=== PATIENT | male | born 1950 | race Caucasian/White ===

== ENCOUNTER 2017-01-25 09:34 | Outpatient (CLI) | payer MEDICARE, OTHER ==
[2017-01-25 09:57] LABS: BASOPHILS % (AUTO) 1.1 %; EOSINOPHILS # (AUTO) 0.1 10^3/uL (0.0-0.7); EOSINOPHILS % (AUTO) 2.9 %; HCT - HEMATOCRIT 39.2 % (42.0-52.0); HGB - HEMOGLOBIN 13.5 g/dL (14.0-18.0); LYMPHOCYTES # (AUTO) 0.6 10^3/uL (1.5-3.5); LYMPHOCYTES % (AUTO) 19.5 %; MEAN CORPUSCULAR HGB CONC 34.4 g/dL (32.0-36.0); MEAN CORPUSCULAR VOLUME 84.1 fL (80.0-94.0); MEAN PLATELET VOLUME 10.3 fL (7.4-11.4); MONOCYTES # (AUTO) 0.2 10^3/uL (0.0-1.0); MONOCYTES % (AUTO) 7.1 %; NEUTROPHILS # (AUTO) 2.2 10^3/uL (1.5-6.6); NEUTROPHILS % (AUTO) 69.4 %; NUCLEATED RED BLOOD CELLS AUTO 0.1 /100WBC; RED BLOOD COUNT 4.65 10^6/uL (4.70-6.10); RED CELL DISTRIBUTION WIDTH 14.9 % (12.0-15.0); UNCORRECTED WHITE BLOOD COUNT 3.2 x10^3/uL; WHITE BLOOD COUNT 3.2 x10^3/uL (4.8-10.8)
[2017-01-25 10:03] LABS: CREATININE 1.3 mg/dL (0.6-1.2); POTASSIUM 4.3 mmol/L (3.5-5.0)
== END 2017-01-25 09:35 | disposition home or self-care (01) ==
LOC: LAB 09:34
PROVIDERS: ATTEND Nurse Practitioner Family
DX: I25.10 Atherosclerotic heart disease of native coronary artery without angina pectoris (principal)
CPT/HCPCS: 36415; 80048; 85025

== ENCOUNTER 2017-08-21 15:52 | Emergency (ER) | payer MEDICARE, OTHER ==
--- NOTE | 2017-08-21 18:03 | ED Physician Documentation ---
History of Present Illness - Stated complaint Stated Complaint: ABNORMAL LABS - Chief complaint Chief Complaint: General - History obtained from History obtained from: Patient - History of Present Illness Timing: Today (had basic labs done outpatient this morning and critical potassium called to PMD, who referred patient to the ER. Patient is feeling okay.) Review of Systems Cardiac: denies: Chest pain / pressure, Palpitations Respiratory: denies: Dyspnea GI: denies: Vomiting, Diarrhea Musculoskeletal: denies: Extremity swelling Neurologic: denies: Generalized weakness, Near syncope PD PAST MEDICAL HISTORY - Past Medical History Past Medical History: Yes Cardiovascular: Hypertension, High cholesterol, [place] Respiratory: None Endocrine/Autoimmune: Type 2 diabetes : None HEENT: None Psych: None Musculoskeletal: None Derm: None - Past Surgical History Past Surgical History: Yes Ortho: Arthroscopic surgery Cardiovascular: Coronary stent HEENT: Cataracts - Present Medications Home Medications: Ambulatory Orders Medication Instructions Recorded Confirmed Allopurinol [Zyloprim] 100 mg PO DAILY 09/22/12 08/30/14 Aspirin EC [Ecotrin] 81 mg PO DAILY 09/22/12 08/30/14 Clopidogrel [Plavix] 75 mg PO DAILY 09/22/12 08/30/14 Insulin Aspart (Vial) [NovoLOG] 10 unit SUBQ DAILY 09/22/12 08/30/14 Insulin Glargine,Hum.rec.anlog 70 unit SQ 09/22/12 08/30/14 [Lantus] Lisinopril 40 mg PO DAILY 09/22/12 08/30/14 Metformin HCl 1,500 mg PO HS 09/22/12 08/30/14 Metformin HCl [Metformin HCl ER] 1,000 mg PO [facility] 09/22/12 08/30/14 Metoprolol Succinate 100 mg PO DAILY 09/22/12 08/30/14 Atorvastatin [Lipitor] 10 mg 08/21/17 Ranolazine [Ranexa] 500 mg BID 08/21/17 08/21/17 amLODIPine [Norvasc] 5 mg 08/21/17 - Allergies Allergies/Adverse Reactions: Allergies Allergy/AdvReac Type Severity Reaction Status Date / Time ibuprofen [From Motrin] Allergy swelling Verified 09/22/12 11:34 - Social History Does the pt smoke?: No Smoking Status: Never smoker Does the pt drink ETOH?: No Does the pt have substance abuse?: No - Immunizations Immunizations are current?: Yes - POLST Patient has POLST: No PD ED PE NORMAL - Vitals Vital signs reviewed: Yes - General General: Alert and oriented X 3, No acute distress, Well developed/nourished - Derm Derm: Normal color, Warm and dry - Extremities Extremities: No tenderness to palpate, No edema, No calf tenderness / cord - Neuro Neuro: Alert and oriented X 3, No motor deficit, Normal speech Results - Vitals Vitals: Oxygen O2 Source Room air - Labs Labs: Laboratory Tests 08/21/17 08/21/17 18:04 18:04 WBC 3.8 L RBC 4.53 L Hgb 13.2 L Hct 39.1 L MCV 86.4 MCH 29.1 MCHC 33.7 RDW 16.1 H Plt Count 78 L MPV 10.1 Sodium 136 Potassium 4.8 Chloride 103 Carbon Dioxide 25 Anion Gap 8.0 BUN 31 H Creatinine 1.3 H Estimated GFR (MDRD) 55 L Glucose 151 H Calcium 8.8 Total Bilirubin 2.4 H AST 40 ALT 45 Alkaline Phosphatase 46 Total Protein 7.4 Albumin 4.3 Globulin 3.1 Albumin/Globulin Ratio 1.4 Lipase 107 H PD MEDICAL DECISION MAKING - ED course Complexity details: reviewed results (potassium level here is normal and creatinine is good/baseline, so makes more sense that the level outpatient was wrong/hemolyzed. ), considered differential, d/w patient - Sepsis Event Vital Signs: Oxygen O2 Source Room air Departure - Departure Disposition: 01 Home, Self Care Clinical Impression: Abnormal laboratory test Condition: Stable Record reviewed to determine appropriate education?: Yes Follow-Up: KD TELLO DO [Primary Care Provider] - Comments: Your potassium level repeat test here is 4.8. The one earlier must have been hemolyzed or an abnormal reading from the lab machine. Discharge Date/Time: 08/21/17 18:54
[2017-08-21] MEDS ORDERED: SODIUM CHLORIDE 0.9% 1,000 ML IV ONE (18:07)
[2017-08-21 18:14] LABS: HGB - HEMOGLOBIN 13.2 g/dL (14.0-18.0); MEAN CORPUSCULAR HEMOGLOBIN 29.1 pg (27.0-31.0); MEAN CORPUSCULAR HGB CONC 33.7 g/dL (32.0-36.0); MEAN CORPUSCULAR VOLUME 86.4 fL (80.0-94.0); MEAN PLATELET VOLUME 10.1 fL (7.4-11.4); RED BLOOD COUNT 4.53 10^6/uL (4.70-6.10); RED CELL DISTRIBUTION WIDTH 16.1 % (12.0-15.0); WHITE BLOOD COUNT 3.8 x10^3/uL (4.8-10.8)
[2017-08-21 18:27] LABS: ALBUMIN 4.3 g/dL (3.2-5.5); ALBUMIN/GLOBULIN RATIO 1.4 (1.0-2.2); BILIRUBIN,TOTAL 2.4 mg/dL (0.2-1.0); CALCIUM 8.8 mg/dL (8.5-10.3); CREATININE 1.3 mg/dL (0.6-1.2); TOTAL PROTEIN 7.4 g/dL (6.7-8.2)
[2017-08-21 18:38] VITALS: BP 134/64
== END 2017-08-21 18:54 | disposition home or self-care (01) ==
LOC: ED 15:52
DX: E87.5 Hyperkalemia (principal); I10 Essential (primary) hypertension; E78.00 Pure hypercholesterolemia, unspecified; E11.9 Type 2 diabetes mellitus without complications; I25.2 Old myocardial infarction; Z95.5 Presence of coronary angioplasty implant and graft; Z79.82 Long term (current) use of aspirin; Z79.4 Long term (current) use of insulin
CPT/HCPCS: 36415; 80053; 83690; 85027; 99282; 99283

== ENCOUNTER 2017-09-04 13:15 | Emergency (ER) | payer MEDICARE, OTHER ==
--- NOTE | 2017-09-04 14:49 | ED Physician Documentation ---
PD HPI SYNCOPE - Stated complaint Stated Complaint: LIGHT HEADED,FATIGUE - Chief complaint Chief Complaint: Neuro - History obtained from History obtained from: Patient - History of Present Illness Witnessed: Witnessed Timing - onset: Today (feeling lightheaded and weak, without syncope. Has had similar with dehydration and high potassium. He has had a few episodes of potassium being high in the past few months. He says he dehydrates easily.) Preceding symptoms: Light headed, Generalized weakness (he was outdoors doing some work on roof/yard yesterday, but felt that he was hydrating through the day. Superior tired and weak later and overnight. Still feeling lightheaded today, and worse with standing up. Had had similar with dehydration and elevated potassium a few times in the past several months.). No: Headache, Chest pain, Nausea / vomiting Contributing factors: Recent med change (new BP/heart med about 3-4 months ago.) , Decreased PO intake (he thought he was drinking fluids okay, but was outdoors/ sun exposure during day yesterday), Just stood up Injury occurred: No: Fell, Head injury Similar symptoms before: Diagnosis (dehydration and elevated potassium) Review of Systems Constitutional: denies: Fever, Chills Nose: denies: Rhinorrhea / runny nose, Congestion Throat: denies: Sore throat Cardiac: denies: Chest pain / pressure, Palpitations, Pedal edema, Calf pain Respiratory: denies: Dyspnea, Cough GI: denies: Abdominal Pain, Nausea, Vomiting, Diarrhea Skin: denies: Rash, Lesions Neurologic: reports: Generalized weakness. denies: Focal weakness, Numbness, Confused, Altered mental status, Headache, Head injury Endocrine: denies: Weight loss Immunocompromised: denies: Immunocompromised PD PAST MEDICAL HISTORY - Past Medical History Cardiovascular: Hypertension, High cholesterol, [place] Respiratory: None Endocrine/Autoimmune: Type 2 diabetes : None HEENT: None Psych: None Musculoskeletal: None Derm: None - Past Surgical History Past Surgical History: Yes Ortho: Arthroscopic surgery Cardiovascular: Coronary stent HEENT: Cataracts - Present Medications Home Medications: Ambulatory Orders Medication Instructions Recorded Confirmed Allopurinol [Zyloprim] 100 mg PO DAILY 09/22/12 08/30/14 Aspirin EC [Ecotrin] 81 mg PO DAILY 09/22/12 08/30/14 Clopidogrel [Plavix] 75 mg PO DAILY 09/22/12 08/30/14 Insulin Aspart (Vial) [NovoLOG] 10 unit SUBQ DAILY 09/22/12 08/30/14 Insulin Glargine,Hum.rec.anlog 70 unit SQ HS 09/22/12 08/30/14 [Lantus] Lisinopril 40 mg PO DAILY 09/22/12 08/30/14 Metformin HCl 1,500 mg PO HS 09/22/12 08/30/14 Metformin HCl [Metformin HCl ER] 1,000 mg PO QAM 09/22/12 08/30/14 Metoprolol Succinate 100 mg PO DAILY 09/22/12 08/30/14 Atorvastatin [Lipitor] 10 mg 08/21/17 Ranolazine [Ranexa] 500 mg BID 08/21/17 08/21/17 amLODIPine [Norvasc] 5 mg 08/21/17 - Allergies Allergies/Adverse Reactions: Allergies Allergy/AdvReac Type Severity Reaction Status Date / Time ibuprofen [From Motrin] Allergy swelling Verified 09/22/12 11:34 - Living Situation Living Situation: reports: With spouse/s.o. Living Arrangement: reports: At home - Social History Does the pt smoke?: No Smoking Status: Never smoker Does the pt drink ETOH?: No Does the pt have substance abuse?: No - Family History Family history: reports: Non contributory - Immunizations Immunizations are current?: Yes - POLST Patient has POLST: No PD ED PE NORMAL - Vitals Vital signs reviewed: Yes - General General: Alert and oriented X 3, No acute distress, Well developed/nourished - HEENT HEENT: Atraumatic, Ears normal, Moist mucous membranes, Pharynx benign - Neck Neck: Supple, no meningeal sign, No adenopathy - Cardiac Cardiac: RRR, No murmur - Respiratory Respiratory: Clear bilaterally - Abdomen Abdomen: Soft, Non tender - Back Back: No CVA TTP - Derm Derm: Normal color, Warm and dry - Extremities Extremities: No tenderness to palpate, Normal ROM s pain, No edema, No calf tenderness / cord - Neuro Neuro: Alert and oriented X 3, No motor deficit, No sensory deficit, Normal speech Results - Vitals Vitals: Vital Signs - 24 hr 09/04/17 09/04/17 09/04/17 13:22 19:15 20:03 Temperature 36.2 C L Heart Rate 65 84 83 Respiratory 16 16 16 Rate Blood Pressure 117/60 119/76 134/74 H O2 Saturation 100 99 98 Oxygen O2 Source Room air - EKG (time done) 13:25 Rate: Rate (enter#) (65) Rhythm: NSR Colon: Normal Intervals: Normal ND QRS: Normal Ischemia: Normal ST segments, Hyperacute T waves (slightly peaked t waves anteriorly only. ). No: ST elevation c/w ischemia, ST depression - Labs Labs: Laboratory Tests 09/04/17 09/04/17 09/04/17 13:33 15:35 15:35 WBC 5.4 RBC 4.96 Hgb 14.2 Hct 42.6 MCV 86.0 MCH 28.7 MCHC 33.4 RDW 15.5 H Plt Count 102 L MPV 9.3 Neut # (Auto) 4.3 Lymph # (Auto) 0.7 L [place] # (Auto) 0.3 Eos # (Auto) 0.0 Baso # (Auto) 0.0 Absolute Nucleated RBC 0.02 Nucleated RBC % 0.3 Sodium 134 L Potassium 7.6 H* Chloride 100 L Carbon Dioxide 25 Anion Gap 9.0 BUN 38 H Creatinine 1.9 H Estimated GFR (MDRD) 35 L Glucose 138 H POC Whole Bld Glucose 148 H Calcium 9.1 Phosphorus 4.2 Magnesium 1.8 Total Bilirubin 4.1 H AST 53 H ALT 61 H Alkaline Phosphatase 55 Troponin I B-Natriuretic Peptide Total Protein 8.0 Albumin 4.8 Globulin 3.2 Albumin/Globulin Ratio 1.5 Lipase 31 09/04/17 09/04/17 09/04/17 15:35 15:35 18:26 WBC RBC Hgb Hct MCV MCH MCHC RDW Plt Count MPV Neut # (Auto) Lymph # (Auto) [place] # (Auto) Eos # (Auto) Baso # (Auto) Absolute Nucleated RBC Nucleated RBC % Sodium 138 Potassium 5.9 H Chloride 109 Carbon Dioxide 22 Anion Gap 7.0 BUN 37 H Creatinine 1.6 H Estimated GFR (MDRD) 43 L Glucose 87 POC Whole Bld Glucose Calcium 8.0 L Phosphorus Magnesium Total Bilirubin AST ALT Alkaline Phosphatase Troponin I < 0.04 B-Natriuretic Peptide 49 Total Protein Albumin Globulin Albumin/Globulin Ratio Lipase PD MEDICAL DECISION MAKING - ED course Complexity details: reviewed results (he is feeling much better. He has decreased creatinine from 1.9 to 1.6 and potassium from 7.6 to 5.9. Considered OBS to ensure still goes down more. Will contact Hospitalist to discuss. Patient feeling better though and would prefer to go home. With the good improvement in labs, I feel this is safe to do. ), considered differential ( dehydration and high potassium. review of his med list and discussed with him - he had started new med for BP/heart about 3-4 months ago, and [facility] lists elevated creatinine and renal insuff as side effects. I wonder if this med is causing him to be easily bumping his creatinine and thus potassium in setting of mild dehydrating events such as yesterday. He is seeing his Dock Boss in next week and so will discuss it with her (Annemarie?).), d/w patient - Sepsis Event Vital Signs: Vital Signs - 24 hr 09/04/17 09/04/17 09/04/17 13:22 19:15 20:03 Temperature 36.2 C L Heart Rate 65 84 83 Respiratory 16 16 16 Rate Blood Pressure 117/60 119/76 134/74 H O2 Saturation 100 99 98 Oxygen O2 Source Room air Departure - Departure Disposition: 01 Home, Self Care Clinical Impression: Dehydration, Acute hyperkalemia, Elevated serum creatinine Condition: Stable Record reviewed to determine appropriate education?: Yes Comments: Talk to your filter helper about the Ranexa medication as elevated creatinine can be side effects to it and therefore enhance the high potassium associated with dehydration. See what the filter helper thinks about that. Stay well- hydrated meanwhile. Continue other usual medications. Follow-up with your primary care in 1 or 2 days to have your electrolytes blood test rechecked again , presumably on Saturday. Return if symptoms develop again. Rest tomorrow. Discharge Date/Time: 09/04/17 20:03
[2017-09-04] MEDS ORDERED: SODIUM CHLORIDE 0.9% 1,000 ML IV ONE ×3 (14:59→17:15)
[2017-09-04] MEDS ORDERED: KETOROLAC 15 MG/ML VIAL IVP STA (14:59)
[2017-09-04 15:50] LABS: BASOPHILS % (AUTO) 0.6 %; EOSINOPHILS % (AUTO) 0.8 %; HGB - HEMOGLOBIN 14.2 g/dL (14.0-18.0); LYMPHOCYTES # (AUTO) 0.7 10^3/uL (1.5-3.5); LYMPHOCYTES % (AUTO) 12.7 %; MEAN CORPUSCULAR HEMOGLOBIN 28.7 pg (27.0-31.0); MEAN CORPUSCULAR HGB CONC 33.4 g/dL (32.0-36.0); MEAN PLATELET VOLUME 9.3 fL (7.4-11.4); MONOCYTES # (AUTO) 0.3 10^3/uL (0.0-1.0); MONOCYTES % (AUTO) 6.2 %; NEUTROPHILS # (AUTO) 4.3 10^3/uL (1.5-6.6); NEUTROPHILS % (AUTO) 79.7 %; PLT - PLATELET COUNT 102 10^3/uL (130-450); RED BLOOD COUNT 4.96 10^6/uL (4.70-6.10); RED CELL DISTRIBUTION WIDTH 15.5 % (12.0-15.0); WHITE BLOOD COUNT 5.4 x10^3/uL (4.8-10.8)
[2017-09-04 16:07] LABS: ALBUMIN 4.8 g/dL (3.2-5.5); ALBUMIN/GLOBULIN RATIO 1.5 (1.0-2.2); BILIRUBIN,TOTAL 4.1 mg/dL (0.2-1.0); CALCIUM 9.1 mg/dL (8.5-10.3); CREATININE 1.9 mg/dL (0.6-1.2); MAGNESIUM 1.8 mg/dL (1.7-2.8); PHOSPHORUS 4.2 mg/dL (2.5-4.6)
[2017-09-04] MEDS ORDERED: SODIUM BICARBONATE ABBOJECT 50 MEQ/50 ML SYRINGE IVP STA (16:09)
[2017-09-04] MEDS ORDERED: DEXTROSE 50% ABBOJECT 25 GM/50 ML SYRINGE IVP STA (16:10)
[2017-09-04] MEDS ORDERED: INSULIN REGULAR HUMAN 100 UNIT/1 ML 10 ML MDV IVP STA (16:10)
[2017-09-04 18:48] LABS: CREATININE 1.6 mg/dL (0.6-1.2)
[2017-09-04 20:03] VITALS: BP 134/74
== END 2017-09-04 20:03 | disposition home or self-care (01) ==
LOC: ED 13:15
DX: E86.0 Dehydration (principal); E87.5 Hyperkalemia; R79.89 Other specified abnormal findings of blood chemistry; I10 Essential (primary) hypertension; E78.00 Pure hypercholesterolemia, unspecified; I25.2 Old myocardial infarction; E11.9 Type 2 diabetes mellitus without complications; Z79.4 Long term (current) use of insulin; Z95.5 Presence of coronary angioplasty implant and graft
CPT/HCPCS: 36415; 80048; 80053; 83690; 83735; 83880; 84100; 84484; 85025; 93005; 96361; 96374; 96375; 99283; 99284; J1815